=== PATIENT | male | born 1980 | race Two or more races ===

== ENCOUNTER 2019-11-04 07:51 | Day surgery (SDC) | payer SELFPAY ==
[2019-11-04] VITALS (12 sets, daily range): BP systolic 119–140; BP diastolic 68–88
[~2019-11-04] VITALS: Ht 167.6 cm; Wt 93.0 kg
--- NOTE | 2019-11-04 07:48 | Operative Note - PDOC ---
Operative Note Operative Note Pre-op Diagnosis: left knee lateral meniscus tear Procedure: see op report Post-op Diagnosis: same as pre-op plus Operative Findings: consistent w/pre-op dx studies Anesthesia: local Specimen: none Complications: none Condition: stable Estimated Blood Loss: none Implant(s) used?: Yes Patricio Prakash MD Nov 04, 2019 07:48
--- NOTE | 2019-11-04 07:48 | Pre-Procedure Note/Attestation ---
Pre-Procedure Note/Attestation Complete Prior to Procedure Planned Procedure: left Procedure Narrative: knee arthroscopic lateral menicus repair Indications for Procedure Pre-Operative Diagnosis: left knee lateral meniscus tear Attestation I attest that I discussed the nature of the procedure; its benefits; risks and complications; and alternatives (and the risks and benefits of such alternatives ), prior to the procedure, with the patient (or the patient's legal development representative). I attest that, if there was a reasonable possibility of needing a blood transfusion, the patient (or the patient's legal development representative) was given the [facility] standardized written summary, pursuant to the Virgilio Fe Blood Safety Act ([place] Health and Safety Code # 1645, as amended). I attest that I re-evaluated the patient just prior to the surgery and that there has been no change in the patient's H&P, except as documented below: Patricio Prakash MD Nov 04, 2019 07:48
[~2019-11-04 07:51] MED LIST: ceFAZolin sod 1 GM in NS 55 ML IVPB ONE; celeBREX 200mg Cap **SURGERY PATIENTS ONLY ORAL SCH; oxyCONTIN 20mg tab ORAL ONE
[2019-11-04] MEDS ORDERED: Tylenol #3 tab (300mg/30mg) ORAL PRN (08:00)
[2019-11-04] MEDS ORDERED: D5 1/2NS 1,000 ML IV SCH (08:00)
[2019-11-04] MEDS ORDERED: HYDROmorphone 1mg/ml Carpuject SUBQ PRN (08:00)
[2019-11-04] MEDS ORDERED: HYDROcodone/Acetamin 5/325 tab ORAL PRN (08:00)
[2019-11-04] MEDS ORDERED: METFORMIN HCL1000 M1 ORAL (08:40)
[2019-11-04] MEDS ORDERED: TYLENOL EXTRA500 MG ORAL (08:40)
[2019-11-04] MEDS ORDERED: Lidocaine 1% 10mg/ml/Epi 0.005mg/ml 30ml vial INJ ONE (10:03)
[2019-11-04] MEDS ORDERED: Kenalog-40 1ml Vial ONE (10:03)
[2019-11-04] MEDS ORDERED: Duramorph PF 5mg/10ml amp ONE (10:03)
[2019-11-04] MEDS ORDERED: Ketorolac 30mg Inj ONE ×2 (10:03→11:12)
[2019-11-04] MEDS ORDERED: Bupivacaine 0.25% Inj 30ml INJ ONE (10:03)
[2019-11-04] MEDS ORDERED: NS Irrig 2000ml IRRIG ONE ×3 (10:07→11:26)
[2019-11-04] MEDS ORDERED: fentaNYL 100 mcg/2 mL IV ONE ×2 (10:24→11:01)
[2019-11-04] MEDS ORDERED: Midazolam 2mg/2ml Inj ONE (10:24)
[2019-11-04] MEDS ORDERED: LR 1000ml ONE (10:30)
[2019-11-04] MEDS ORDERED: Sterile Water Irrig 1000ml IRRIG ONE (10:30)
[2019-11-04] MEDS ORDERED: Metoclopramide 10mg/2ml Inj ONE (11:05)
[2019-11-04] MEDS ORDERED: Lidocaine 1% MPF 10mg/ml 5ml ONE (11:05)
[2019-11-04] MEDS ORDERED: Ropivacaine 5mg/ml Vial 20ml INJ ONE (11:56)
--- NOTE | 2019-11-04 12:06 | Immediate Post-Op Evaluation ---
Immediate Post-Op Evalulation Immediate Post-Op Evalulation Procedure: left knee scope with meniscus repair Date of Evaluation: Nov 04, 2019 Time of Evaluation: 12:05 IV Fluids: 600 Blood Pressure Systolic: 123 Blood Pressure Diastolic: 80 Pulse Rate: 70 Respiratory Rate: 14 O2 Sat by Pulse Oximetry: 98 Temperature (Fahrenheit): 97.5 Nausea: No Vomiting: No Complications none Patient Status: awake, reacts, patent Hydration Status: adequate Drug: ancef Given Within 1 Hr of Incision: Yes Time Given: 10:48 Cristal Alex CRNA Nov 04, 2019 12:06
--- NOTE | 2019-11-04 12:08 | Anethesia Preoperative Eval ---
Anesthesia Pre-op PMH/ROS General Date of Evaluation: Nov 04, 2019 Time of Evaluation: 10:35 Anesthesiologist: lissy ASA Score: ASA 2 Mallampati Score Class I : Soft palate, uvula, fauces, pillars visible Class II: Soft palate, uvula, fauces visible Class III: Soft palate, base of uvula visible Class IV: Only hard plate visible Mallampati Classification: Class II Surgeon: emiliana Diagnosis: left knee pain Surgical Procedure: left knee scope with meniscus repair Family History: no anesthesia problems Allergies: Coded Allergies: No Known Allergies (Unverified , 11/04/19) Medications: see eMAR Patient NPO?: Yes NPO Date: Nov 04, 2019 NPO Time: 00:01 Past Medical History Cardiovascular: Denies: HTN, CAD, UT, valve dz, arrhythmia, other Pulmonary: Denies: asthma, COPD, JYOTHI, other Gastrointestinal/Genitourinary: Denies: GERD, CRI, ESRD, other Neurologic/Psychiatric: Denies: dementia, CVA, depression/anxiety, TIA, other Endocrine: Reports: DM - [id number]; Denies: hypothyroidism, steroids, other HEENT: Denies: cataract (L), cataract (R), glaucoma, PICAYUNE (L), PICAYUNE (R), other Hematology/Immune: Denies: anemia, DVT, bleeding disorder, other Musculoskeletal/Integumentary: Denies: OA, RA, DJD, DDD, edema, other PSxH Narrative: none Anesthesia Pre-op Phys. 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
[2019-11-04] MEDS ORDERED: fentaNYL 100 mcg/2 mL IV PRN (12:15)
[2019-11-04] MEDS ORDERED: Metoclopramide 10mg/2ml Inj IVP PRN (12:15)
--- NOTE | 2019-11-04 13:00 | Operative Note - Dictated ---
DATE OF OPERATION: 11/04/2019 SURGEON: Patricio Prakash MD. PREOPERATIVE DIAGNOSIS: Left bucket-handle lateral meniscus tear. POSTOPERATIVE DIAGNOSIS: Left bucket-handle lateral meniscus tear. PROCEDURES: 1. Left knee arthroscopic lateral meniscus repair. 2. Synovectomy, medial and lateral patellofemoral compartment. ANESTHESIA: General. INDICATION FOR PROCEDURE: The patient is a pleasant gentleman who had subsequently injured his left knee. He had MRI, which showed displaced lateral meniscus tear, he had decreased locked knee, which is indicative of operative fixation with possible repair of the meniscus. Risks, limitations, expectations, and complications of procedure were discussed in detail. All questions were addressed. DESCRIPTION OF PROCEDURE: After informed consent was obtained, the patient was taken to the operating room. The patient was placed under general anesthesia. Left leg was prepped and draped in a sterile manner. Time-out was performed. Inferolateral stab incision was then made. Camera was placed in the patellofemoral compartment. Patellofemoral compartment was free of any chondral damage. Medial compartment was entered, free of any meniscal chondral damage. The ACL hypertrophic ligamentum mucosum. Synovectomy of the anterior compartment and intercondylar notch, medial compartment, lateral compartment was performed to better allow visualization access to the lateral compartment. Lateral compartment was entered. There was displaced bucket-handle lateral meniscus tear. This was reduced. Three anchors then placed two in horizontal and one in a vertical. Once this was done, the knee was taken through a range of motion. The meniscus was nice and stable. At this point, the instruments were removed. Portal sites were closed with 0 Monocryl sutures. Steri-Strips and a sterile dressing were applied. ESTIMATED BLOOD LOSS: None. COMPLICATIONS: None. SPECIMENS: None. IMPLANTS: Include 3 Biomet meniscal repair. One anchor was wasted due to failure of the fixation in the capsule, which was removed. Patricio Prakash M.D. DR: KATHRYN JOB#: [id number] CC:
--- NOTE | 2019-11-04 13:40 | 48 Hour Post Anesthesia Eval ---
Post Anesthesia Evaluation Procedure: left knee scope with meniscus repair Date of Evaluation: Nov 04, 2019 Time of Evaluation: 13:40 Blood Pressure Systolic: 127 0: 68 Pulse Rate: 75 Respiratory Rate: 14 O2 Sat by Pulse Oximetry: 98 Airway: patent Nausea: No Vomiting: No Hydration Status: adequate Cardiopulmonary Status: stable Mental Status/LOC: patient returned to baseline Follow-up Care/Observations: na Post-Anesthesia Complications: none Follow-up care needed: N/A Cristal Alex CRNA Nov 04, 2019 13:40
== END 2019-11-04 14:25 | disposition home or self-care (01) ==
LOC: SUR 07:51
DX: S83.252A Bucket-handle tear of lateral meniscus, current injury, left knee, initial encounter (principal); X58.XXXA Exposure to other specified factors, initial encounter; Y92.9 Unspecified place or not applicable; E11.9 Type 2 diabetes mellitus without complications
CPT/HCPCS: 29876; 29881; 94003; J0690; J1885; J2250; J2405; J2704; J2765; J2795; J3010; J3490; J7120; 94150